=== PATIENT | female | born 1995 | race Caucasian/White ===

== ENCOUNTER 2018-08-31 17:39 | Emergency (ER) | payer MEDICAID ==
[~2018-08-31] VITALS: Ht 170.2 cm; Wt 107.5 kg
[2018-08-31 17:43] VITALS: Ht 170.2 cm; Wt 107.5 kg
[2018-08-31 18:17] LABS: BASOPHIL % 0.2 % (0-2); PLATELET COUNT 208 x10^3mcL (130-400); RED CELL DISTRIBUTION WIDTH 13.1 % (11.5-14.5)
[2018-08-31 18:24] LABS: CARBON DIOXIDE 21.4 mmol/L (21-32); CHLORIDE SERUM 101 mmol/L (98-107); CREATININE SERUM 0.8 mg/dL (0.6-1.0); GFR1 > 60 mL/min; GLUCOSE SERUM 111 mg/dL (74-106); POTASSIUM SERUM 3.2 mmol/L (3.5-5.1); SODIUM SERUM 130 mmol/L (136-145)
[2018-08-31 18:29] LABS: ALKALINE PHOSPHATASE 236 U/L (46-116); ALT/SGPT 94 U/L (14-59); AST/SGOT 78 U/L (15-37); BILIRUBIN TOTAL 1.97 mg/dL (0.20-1.00); TOTAL PROTEIN, SERUM 7.8 g/dL (6.4-8.2)
[2018-08-31 19:09] LABS: LIPASE 43086 IU/L (73-393)
[2018-08-31 23:07] VITALS: BP 118/68
== END 2018-08-31 23:00 | disposition short-term general hospital (02) ==
LOC: ED 17:39 → MU 20:42 → ED 23:00
PROVIDERS: Emergency Medicine
DX: O99.613 Diseases of the digestive system complicating pregnancy, third trimester (principal); K85.90 Acute pancreatitis without necrosis or infection, unspecified; K80.20 Calculus of gallbladder without cholecystitis without obstruction; Z3A.37 37 weeks gestation of pregnancy
CPT/HCPCS: 83880; J2270; J2543; J2765; J7030; Q0092

== ENCOUNTER 2018-10-10 00:04 | Emergency (ER) | payer MEDICAID ==
[~2018-10-10] VITALS: Ht 170.2 cm; Wt 100.4 kg
[2018-10-10 00:14] VITALS: Ht 170.2 cm; Wt 100.4 kg
[2018-10-10 01:37] VITALS: BP 125/75
== END 2018-10-10 01:37 | disposition home or self-care (01) ==
LOC: ED 00:04
DX: R10.13 Epigastric pain (principal); R10.11 Right upper quadrant pain